=== PATIENT | male | born 1970 | race Caucasian/White ===

== ENCOUNTER 2018-02-07 09:18 | Observation (INO) | payer BC ==
[2018-02-07] MEDS ORDERED: SODIUM CHLORIDE 0.9% 1,000 ML IV STA ×2 (10:17)
[2018-02-07 10:46] LABS: Basophils # (A) 0.1 k/uL (0-0.2); Basophils % (A) 1 %; Eosinophils # (A) 0.4 k/uL (0-0.7); Eosinophils % (A) 5 %; HCT 49.2 % (39.0-53.0); HGB 17.4 gm/dL (13.0-17.5); Lymphocytes # (A) 1.8 k/uL (1.0-4.8); Lymphocytes % (A) 23 %; MCH 30.4 pg (25.0-35.0); MCHC 35.3 g/dL (31.0-37.0); MCV 86.3 fL (80.0-100.0); Mean Platelet Volume 6.7; Monocytes # (A) 0.6 k/uL (0-1.0); Monocytes % (A) 7 %; Neutrophils # (A) 4.9 k/uL (1.3-7.7); Neutrophils % (A) 62 %; Platelet Count 291 k/uL (150-450); RBC 5.71 m/uL (4.30-5.90); RDW 12.7 % (11.5-15.5)
[2018-02-07 10:53] LABS: INR 1.1 (<1.2); Partial Thromboplastin Time 24.2 sec (22.0-30.0); Prothrombin Time 10.8 sec (9.0-12.0)
[2018-02-07 10:57] LABS: ALT 200 U/L (21-72); AST 143 U/L (17-59); Albumin 4.6 g/dL (3.5-5.0); Alkaline Phosphatase 88 U/L (38-126); Anion Gap 11 mmol/L; Blood Urea Nitrogen 15 mg/dL (9-20); Carbon Dioxide 29 mmol/L (22-30); Chloride 97 mmol/L (98-107); Glucose 107 mg/dL (74-99); Lipase 66 U/L (23-300); Magnesium 1.9 mg/dL (1.6-2.3); Potassium 4.1 mmol/L (3.5-5.1); Sodium 137 mmol/L (137-145); Total Bilirubin 1.4 mg/dL (0.2-1.3); Total Protein 8.4 g/dL (6.3-8.2)
[2018-02-07 11:04] LABS: Creatine Kinase 115 U/L (55-170)
--- NOTE | 2018-02-07 11:12 | ED ---
Recheck HPI - General Chief Complaint: Recheck/Abnormal Lab/Rx Stated Complaint: HTN, headache Time Seen by Provider: 02/07/18 09:47 Source: patient, RN notes reviewed, old records reviewed Mode of arrival: ambulatory Limitations: no limitations - History of Present Illness Initial Comments: Patient's 47-year-old male presents emergency department today with the past 2 weeks having some chest discomfort, shortness of breath on exertion. Patient reports he's had history of high blood pressure. He recently had his episodes involving his daughter into college. He reports he went to his primary care provider and they increased his blood pressure medication of amlodipine to 5 mg. He reports that 2 days ago. No EKG was done at that time. Patient states that he had an episode where he was sitting at home and started to have diffuse sweats and this discomfort with chest and came in for reevaluation. Patient states that he's had a family history of heart disease. He is a nonsmoker. - Related Data Home Medications Medication Instructions Recorded Confirmed Atorvastatin [Lipitor] 20 mg PO DAILY 02/07/18 02/07/18 Lisinopril-Hctz 20-25 mg 1 tab PO DAILY 02/07/18 02/07/18 [Zestoretic 20-25] amLODIPine BESYLATE [Norvasc] 2.5 mg PO DAILY 02/07/18 02/07/18 amLODIPine [Norvasc] 5 mg PO DAILY 02/07/18 02/07/18 Allergies Allergy/AdvReac Type Severity Reaction Status Date / Time No Known Allergies Allergy Verified 02/07/18 09:58 Review of Systems ROS Statement: Those systems with pertinent positive or pertinent negative responses have been documented in the HPI. ROS Other: All systems not noted in ROS Statement are negative. Past Medical History Past Medical History: Hypertension History of Any Multi-Drug Resistant Organisms: None Reported Past Surgical History: Orthopedic Surgery Additional Past Surgical History / Comment(s): Rt shoulder surgery, knee surgery Past Psychological History: No Psychological Hx Reported Smoking Status: Never smoker Past Alcohol Use History: Daily Past Drug Use History: None Reported General Exam - General Exam Comments Initial Comments: This is a 47-year-old male. Alert and oriented. No significant distress. Limitations: no limitations General appearance: alert, in no apparent distress Head exam: Present: atraumatic, normocephalic, normal inspection Eye exam: Present: normal appearance, PERRL, EOMI. Absent: scleral icterus, conjunctival injection, periorbital swelling ENT exam: Present: normal exam, mucous membranes moist Neck exam: Present: normal inspection. Absent: tenderness, meningismus, lymphadenopathy Respiratory exam: Present: normal lung sounds bilaterally. Absent: respiratory distress, wheezes, rales, rhonchi, stridor Cardiovascular Exam: Present: regular rate, normal rhythm, normal heart sounds. Absent: systolic murmur, diastolic murmur, rubs, gallop, clicks Extremities exam: Present: normal inspection, full ROM, normal capillary refill. Absent: tenderness, pedal edema, joint swelling, calf tenderness Back exam: Present: normal inspection Neurological exam: Present: alert, oriented X3, CN II-XII intact Psychiatric exam: Present: normal affect, normal mood Skin exam: Present: warm, dry, intact, normal color. Absent: rash Course Vital Signs 02/07/18 02/07/18 09:20 11:42 Temperature 98.2 F Pulse Rate 87 78 Respiratory 18 16 Rate Blood Pressure 140/101 122/76 O2 Sat by Pulse 96 96 Oximetry Medical Decision Making - Medical Decision Making 47-year-old male presents emergency department today with 2 weeks of intermittent chest discomfort, diaphoresis and shortness of breath. Patient's EKG the symptoms reviewed and are medical for any significant changes except a few PVCs. Troponin is negative. The rest of his lab work was relatively unremarkable. Assessment elevated liver enzymes. Patient reports that this is chronic. He denies any right upper quadrant pain or tenderness. Patient states the pain seems to mainly in the left side of his chest. The same Patient has a family history of heart disease. I discussed that he has risk factors including high blood pressure and symptoms are concerning for unstable angina. This will admit the Patient under Dr. Griffin with consult to cardiology. Patient given aspirin. - Lab Data Result diagrams: 02/07/18 10:33 02/07/18 10:33 Lab Results 02/07/18 02/07/18 02/07/18 Range/Units 10:33 10:33 10:33 WBC 8.0 (3.8-10.6) k/uL RBC 5.71 (4.30-5.90) m/uL Hgb 17.4 (13.0-17.5) gm/dL Hct 49.2 (39.0-53.0) % MCV 86.3 (80.0-100.0) fL MCH 30.4 (25.0-35.0) pg MCHC 35.3 (31.0-37.0) g/dL RDW 12.7 (11.5-15.5) % Plt Count 291 (150-450) k/uL Neutrophils % 62 % Lymphocytes % 23 % Monocytes % 7 % Eosinophils % 5 % Basophils % 1 % Neutrophils # 4.9 (1.3-7.7) k/uL Lymphocytes # 1.8 (1.0-4.8) k/uL Monocytes # 0.6 (0-1.0) k/uL Eosinophils # 0.4 (0-0.7) k/uL Basophils # 0.1 (0-0.2) k/uL PT (9.0-12.0) sec INR (<1.2) APTT (22.0-30.0) sec Sodium 137 (137-145) mmol/L Potassium 4.1 (3.5-5.1) mmol/L Chloride 97 L (98-107) mmol/L Carbon Dioxide 29 (22-30) mmol/L Anion Gap 11 mmol/L BUN 15 (9-20) mg/dL Creatinine 0.91 (0.66-1.25) mg/dL Est GFR (CKD-EPI)AfAm >90 (>60 ml/min/1.73 sqM) Est GFR (CKD-EPI)NonAf >90 (>60 ml/min/1.73 sqM) Glucose 107 H (74-99) mg/dL Calcium 10.0 (8.4-10.2) mg/dL Magnesium 1.9 (1.6-2.3) mg/dL Total Bilirubin 1.4 H (0.2-1.3) mg/dL AST 143 H (17-59) U/L ALT 200 H (21-72) U/L Alkaline Phosphatase 88 (38-126) U/L Total Creatine Kinase 115 (55-170) U/L CK-MB (CK-2) 1.2 (0.0-2.4) ng/mL CK-MB (CK-2) Rel Index 1.0 Troponin I <0.012 (0.000-0.034) ng/mL NT-Pro-B Natriuret Pep pg/mL Total Protein 8.4 H (6.3-8.2) g/dL Albumin 4.6 (3.5-5.0) g/dL Lipase 66 (23-300) U/L 02/07/18 02/07/18 Range/Units 10:33 10:33 WBC (3.8-10.6) k/uL RBC (4.30-5.90) m/uL Hgb (13.0-17.5) gm/dL Hct (39.0-53.0) % MCV (80.0-100.0) fL MCH (25.0-35.0) pg MCHC (31.0-37.0) g/dL RDW (11.5-15.5) % Plt Count (150-450) k/uL Neutrophils % % Lymphocytes % % Monocytes % % Eosinophils % % Basophils % % Neutrophils # (1.3-7.7) k/uL Lymphocytes # (1.0-4.8) k/uL Monocytes # (0-1.0) k/uL Eosinophils # (0-0.7) k/uL Basophils # (0-0.2) k/uL PT 10.8 (9.0-12.0) sec INR 1.1 (<1.2) APTT 24.2 (22.0-30.0) sec Sodium (137-145) mmol/L Potassium (3.5-5.1) mmol/L Chloride (98-107) mmol/L Carbon Dioxide (22-30) mmol/L Anion Gap mmol/L BUN (9-20) mg/dL Creatinine (0.66-1.25) mg/dL Est GFR (CKD-EPI)AfAm (>60 ml/min/1.73 sqM) Est GFR (CKD-EPI)NonAf (>60 ml/min/1.73 sqM) Glucose (74-99) mg/dL Calcium (8.4-10.2) mg/dL Magnesium (1.6-2.3) mg/dL Total Bilirubin (0.2-1.3) mg/dL AST (17-59) U/L ALT (21-72) U/L Alkaline Phosphatase (38-126) U/L Total Creatine Kinase (55-170) U/L CK-MB (CK-2) (0.0-2.4) ng/mL CK-MB (CK-2) Rel Index Troponin I (0.000-0.034) ng/mL NT-Pro-B Natriuret Pep 11 pg/mL Total Protein (6.3-8.2) g/dL Albumin (3.5-5.0) g/dL Lipase (23-300) U/L 02/07/18 11:12 EKG performed at 1012 so sinus rhythm with occasional PVCs. Otherwise normal EKG noted. - Radiology Data Radiology results: report reviewed Chest x-rays negative for any acute process. Disposition Clinical Impression: Unstable angina Disposition: ADMITTED IP TO THIS HOSP Condition: Good Is patient prescribed a controlled substance at d/c from ED?: No Referrals: Mic Antonio MD [Primary Care Provider] - 1-2 days Time of Disposition: 12:46 - Out of Hospital Transfer - Req. Specs Out of Hospital Transfer - Requested Specifics: Other Emergency Center
[2018-02-07 11:17] LABS: Creatine Kinase MB 1.2 ng/mL (0.0-2.4); Troponin I <0.012 ng/mL (0.000-0.034)
--- NOTE | 2018-02-07 11:21 | XR ---
EXAMINATION TYPE: XR chest 2V DATE OF EXAM: 02/07/2018 COMPARISON: NONE HISTORY: Chest pain TECHNIQUE: Frontal and lateral views of the chest are obtained. FINDINGS: There is no focal air space opacity, pleural effusion, or pneumothorax seen. The cardiac silhouette size is within normal limits. The osseous structures are intact. Postop change noted to the right shoulder. IMPRESSION: No acute cardiopulmonary process.
[2018-02-07] MEDS ORDERED: NITROGLYCERIN SL TABS 0.4 MG TAB SUBLINGUAL PRN (11:58)
[2018-02-07] MEDS ORDERED: ASPIRIN 81 MG PO STA (11:58)
[2018-02-07] MEDS ORDERED: IBUPROFEN 400 MG TAB PO PRN (12:47)
[2018-02-07] MEDS ORDERED: MORPHINE SULFATE 4 MG/ML SYRINGE IV PRN (12:47)
[2018-02-07] MEDS ORDERED: NALOXONE 0.4 MG/ML 1 ML VIAL IV PRN (12:47)
[2018-02-07] MEDS ORDERED: ACETAMINOPHEN TAB 325 MG TAB PO PRN (12:47)
[2018-02-07] MEDS ORDERED: KETOROLAC 30 MG/ML 1 ML VIAL IVP PRN (12:47)
--- NOTE | 2018-02-07 15:52 | P.CRDCN ---
History of Present Illness History of present illness: Mr. Cr is a pleasant 47-year-old male past medical history significant for hypertension, dyslipidemia, osteoarthritis and daily alcohol intake. He denies history of coronary artery disease and has never seen a admitting representative for any reason. We have been asked to see him in consultation for chest pain. He states the previous week or so he has been struggling with not feeling well in general. He describes symptoms of headache, palpitations, diaphoresis and dizziness. He has no specific aggravating factor for these symptoms. He has followed up with his primary care physician and amlodipine was increased from 5 to 7.5 mg daily. He woke up on Sunday morning at 0300 feeling generally not well with very vague symptoms of dizziness and fatigue. He took his increased dose of Norvasc 7.5 mg and within about 30 minutes or so he said that he started to feel good. He went on throughout the day with no significant symptoms of chest discomfort, shortness of breath, palpitations or dizziness. Same situation happened again the next day woke up around 3:00 in the morning not feeling well, took his blood pressure medications but subsequently started feeling better. At the time of my exam he is seen sitting up in bed in no acute distress, denies chest pain, shortness of breath, dizziness or palpitations. EKG reveals sinus mechanism with inferior Q-waves noted. No acute ST or T-wave changes. Chest xray negative for an acute cardiopulmonary process. Laboratory data reviewed, hemoglobin 17.4, platelets 291, sodium 137, potassium 4.1, magnesium 1.9, creatinine 0.91, total bilirubin 1.4, AST 143, ALT 200, proBNP 11 and cardiac enzymes negative 1. Current cardiac medications include lisinopril/HCTZ 20/25 mg daily, amlodipine 7.5 mg daily and atorvastatin 20 mg daily. Review of Systems At the time of my exam: CONSTITUTIONAL: Denies fever. Denies chills. EYES: Denies blurred vision. Denies vision changes. Denies eye pain. EARS, NOSE, MOUTH & THROAT: Denies headache. Denies sore throat. Denies ear pain. CARDIOVASCULAR: Denies chest pain. Denies shortness of breath. Denies orthopnea. Denies PND. Denies palpitations. RESPIRATORY: Denies cough. GASTROINTESTINAL: Denies abdominal pain. Denies diarrhea. Denies constipation. Denies nausea. Denies vomiting. MUSCULOSKELETAL: Denies myalgias. INTEGUMENTARY: Denies pruitis. Denies rash. NEUROLOGIC: Denies numbness. Denies tingling. Denies weakness. PSYCHIATRIC: Denies anxiety. Denies depression. ENDOCRINE: Denies fatigue. Denies weight change. Denies polydipsia. Denies polyurina. GENITOURINARY: Denies burning, hematuria or urgency with micturation. HEMATOLOGIC: Denies history of anemia. Denies bleeding. Past Medical History Past Medical History: Hypertension, Osteoarthritis (OA) Additional Past Medical History / Comment(s): Arthritis L knee, fatty liver History of Any Multi-Drug Resistant Organisms: None Reported Past Surgical History: Orthopedic Surgery Additional Past Surgical History / Comment(s): Rt shoulder rotator cuff surgery , L knee arthroscopic surgery, wisdom teeth extractions. Smoking Status: Never smoker - Past Family History Father Family Medical History: Vascular Disorder Additional Family Medical History / Comment(s): Father as a complication of caratid artery surgery that hemorrhaged. Mother Family Medical History: CVA/TIA Additional Family Medical History / Comment(s): Mother has had TIAs and CVAs. Medications and Allergies Home Medications Medication Instructions Recorded Confirmed Type Atorvastatin [Lipitor] 20 mg PO DAILY 02/07/18 02/07/18 History Lisinopril-Hctz 20-25 mg 1 tab PO DAILY 02/07/18 02/07/18 History [Zestoretic 20-25] amLODIPine BESYLATE [Norvasc] 2.5 mg PO DAILY 02/07/18 02/07/18 History amLODIPine [Norvasc] 5 mg PO DAILY 02/07/18 02/07/18 History Allergies Allergy/AdvReac Type Severity Reaction Status Date / Time No Known Allergies Allergy Verified 02/07/18 09:58 Physical Exam Vitals: Vital Signs Temp Pulse Resp BP Pulse Ox 02/07/18 14:44 85 20 168/75 93 L 02/07/18 13:42 81 18 131/85 96 02/07/18 11:42 78 16 122/76 96 02/07/18 09:20 98.2 F 87 18 140/101 96 Intake and Output 02/07/18 02/07/18 02/07/18 06:59 14:59 22:59 Other: Weight 113.398 kg Blood pressure 168/75 heart rate 85 afebrile maintaining oxygen saturation on room air GENERAL: This is a 47-year-old patient male in no apparent distress at the time of my examination. HEENT: Head is atraumatic, normocephalic. Pupils are equal, round. Sclerae anicteric. Conjunctivae are clear. Mucous membranes of the mouth are moist. Neck is supple. There is no jugular venous distention. No carotid bruit is heard. LUNGS: Clear to auscultation no wheezes, rales or rhonchi. No chest wall tenderness is noted on palpation or with deep breathing. HEART: Regular rate and rhythm without murmurs, rubs or gallops. S1 and S2 heard. ABDOMEN: Soft, nontender. Bowel sounds are heard. No organomegaly noted. EXTREMITIES: No evidence of peripheral edema and no calf tenderness noted. VASCULAR: Radial and dorsalis pedis pulses palpated, no evidence of clubbing. NEUROLOGIC: Patient is awake, alert and oriented x3. Results 02/07/18 10:33 02/07/18 10:33 Cardiac Enzymes 02/07/18 02/07/18 Range/Units 10:33 10:33 AST 143 H (17-59) U/L CK-MB (CK-2) 1.2 (0.0-2.4) ng/mL Troponin I <0.012 (0.000-0.034) ng/mL Coagulation 02/07/18 Range/Units 10:33 PT 10.8 (9.0-12.0) sec APTT 24.2 (22.0-30.0) sec CBC 02/07/18 Range/Units 10:33 WBC 8.0 (3.8-10.6) k/uL RBC 5.71 (4.30-5.90) m/uL Hgb 17.4 (13.0-17.5) gm/dL Hct 49.2 (39.0-53.0) % Plt Count 291 (150-450) k/uL Comprehensive Metabolic Panel 02/07/18 Range/Units 10:33 Sodium 137 (137-145) mmol/L Potassium 4.1 (3.5-5.1) mmol/L Chloride 97 L (98-107) mmol/L Carbon Dioxide 29 (22-30) mmol/L BUN 15 (9-20) mg/dL Creatinine 0.91 (0.66-1.25) mg/dL Glucose 107 H (74-99) mg/dL Calcium 10.0 (8.4-10.2) mg/dL AST 143 H (17-59) U/L ALT 200 H (21-72) U/L Alkaline Phosphatase 88 (38-126) U/L Total Protein 8.4 H (6.3-8.2) g/dL Albumin 4.6 (3.5-5.0) g/dL Current Medications Generic Name Dose Route Start Last Admin Trade Name Freq PRN Reason Stop Dose Admin Amlodipine Besylate 5 mg 02/08/18 09:00 Norvasc PO DAILY KRISTINA Amlodipine Besylate 2.5 mg 02/08/18 09:00 Norvasc PO DAILY KRISTINA Atorvastatin Calcium 20 mg 02/08/18 09:00 Lipitor PO DAILY KRISTINA Lisinopril/HCTZ 1 each 02/08/18 09:00 Zestoretic 20-25 PO DAILY KRISTINA Sodium Chloride 1,000 mls @ 100 mls/hr 02/07/18 10:17 02/07/18 10:35 Saline 0.9% IV 02/07/18 20:16 100 mls/hr .Q10H STA Administration Sodium Chloride 1,000 mls @ 120 mls/hr 02/07/18 13:00 Saline 0.9% IV .Q8H20M KRISTINA Morphine Sulfate 4 mg 02/07/18 12:47 Morphine Sulfate (Inj) IV Q4HR PRN Severe Pain Naloxone HCl 0.2 mg 02/07/18 12:47 Narcan IV Q2M PRN Opioid Reversal Nitroglycerin 0.4 mg 02/07/18 11:58 Nitrostat SUBLINGUAL Q5M PRN Chest Pain Pantoprazole Sodium 40 mg 02/07/18 15:15 Protonix IVP DAILY KRISTINA Intake and Output 02/07/18 02/07/18 02/07/18 06:59 14:59 22:59 Other: Weight 113.398 kg Patient Weight 02/08/18 06:59 Weight 113.398 kg 02/07/18 10:33 02/07/18 10:33 Assessment and Plan Assessment: ASSESSMENT Chest pain, atypical with palpitations. Headache Hypertension, uncontrolled Dyslipidemia Elevated liver enzymes, possibly related to daily alcohol intake and statin therapy. PLAN Continue to obtain serial cardiac enzymes to rule out an acute coronary event. Obtain 2D echocardiogram and doppler study to assess cardiac structure and function. Ongoing telemetry monitoring for an acute arrhythmia. Increase amlodipine to 10 mg daily. Hold atorvastatin pending lipid panel. Check TSH and free T4. Further recommendations to follow based on clinical course. Thank you kindly for this consultation. Nurse Practitioner note has been reviewed, I agree with a documented findings and plan of care. Patient was seen and examined.
--- NOTE | 2018-02-07 16:07 | P.HPIM ---
History of Present Illness 47-year-old male past medical history significant for hypertension, dyslipidemia, osteoarthritis and daily alcohol intake. He denies history of coronary artery disease and has never seen a contractor buyer for any reason. We have been asked to see him in consultation for chest pain. He states the previous week or so he has been struggling with not feeling well in general. He describes symptoms of headache, palpitations, diaphoresis and dizziness. He has no specific aggravating factor for these symptoms. He has followed up with his primary care physician and amlodipine was increased from 5 to 7.5 mg daily. He woke up on Sunday morning at 0300 feeling generally not well with very vague symptoms of dizziness and fatigue. He took his increased dose of Norvasc 7.5 mg and within about 30 minutes or so he said that he started to feel good. He went on throughout the day with no significant symptoms of chest discomfort, shortness of breath, palpitations or dizziness. Same situation happened again the next day woke up around 3:00 in the morning not feeling well, took his blood pressure medications but subsequently started feeling better. At the time of my exam he is seen sitting up in bed in no acute distress, denies chest pain , shortness of breath, dizziness or palpitations. Patient does have elevated liver enzymes does drink alcohol on a daily basis for 3-4 beers never had any withdrawals do not have any withdrawals as per the patient. Because of elevated liver enzymes him holding upon statin. Review of Systems REVIEW OF SYSTEMS: CONSTITUTIONAL: No fever, no malaise, no fatigue. HEENT: No recent visual problems or hearing problems. Denied any sore throat. CARDIOVASCULAR: No chest pain, orthopnea, PND, no palpitations, no syncope. PULMONARY: No shortness of breath, no cough, no hemoptysis. GASTROINTESTINAL: No diarrhea, no nausea, no vomiting, no abdominal pain. Normoactive bowel sounds. NEUROLOGICAL: No headaches, no weakness, no numbness. HEMATOLOGICAL: Denies any bleeding or petechiae. GENITOURINARY: Denies any burning micturition, frequency, or urgency. MUSCULOSKELETAL/RHEUMATOLOGICAL: Denies any joint pain, swelling, or any muscle pain. ENDOCRINE: Denies any polyuria or polydipsia. The rest of the 14-point review of systems is negative. Past Medical History Past Medical History: Hypertension, Osteoarthritis (OA) Additional Past Medical History / Comment(s): Arthritis L knee, fatty liver History of Any Multi-Drug Resistant Organisms: None Reported Past Surgical History: Orthopedic Surgery Additional Past Surgical History / Comment(s): Rt shoulder rotator cuff surgery , L knee arthroscopic surgery, wisdom teeth extractions. Smoking Status: Never smoker - Past Family History Father Family Medical History: Vascular Disorder Additional Family Medical History / Comment(s): Father as a complication of caratid artery surgery that hemorrhaged. Mother Family Medical History: CVA/TIA Additional Family Medical History / Comment(s): Mother has had TIAs and CVAs. Medications and Allergies Home Medications Medication Instructions Recorded Confirmed Type Atorvastatin [Lipitor] 20 mg PO DAILY 02/07/18 02/07/18 History Lisinopril-Hctz 20-25 mg 1 tab PO DAILY 02/07/18 02/07/18 History [Zestoretic 20-25] amLODIPine BESYLATE [Norvasc] 2.5 mg PO DAILY 02/07/18 02/07/18 History amLODIPine [Norvasc] 5 mg PO DAILY 02/07/18 02/07/18 History Allergies Allergy/AdvReac Type Severity Reaction Status Date / Time No Known Allergies Allergy Verified 02/07/18 09:58 Physical Exam Vitals: Vital Signs Temp Pulse Pulse Resp BP BP Pulse Ox 02/07/18 15:20 98.2 F 76 18 145/80 95 02/07/18 14:44 85 20 168/75 93 L 02/07/18 13:42 81 18 131/85 96 02/07/18 11:42 78 16 122/76 96 02/07/18 09:20 98.2 F 87 18 140/101 96 Intake and Output 02/07/18 02/07/18 02/07/18 06:59 14:59 22:59 Other: Weight 113.398 kg 115.2 kg Results CBC & Chem 7: 02/07/18 10:33 02/07/18 10:33 Labs: Abnormal Lab Results - Last 24 Hours (Table) 02/07/18 Range/Units 10:33 Chloride 97 L (98-107) mmol/L Glucose 107 H (74-99) mg/dL Total Bilirubin 1.4 H (0.2-1.3) mg/dL AST 143 H (17-59) U/L ALT 200 H (21-72) U/L Total Protein 8.4 H (6.3-8.2) g/dL Thrombosis Risk Factor Assmnt - Choose All That Apply Any of the Below Risk Factors Present?: Yes Each Factor Represents 1 point: Age 41-60 years, Obesity (BMI >25) Other Risk Factors: No Other congenital or acquired thrombophilia - If yes, enter type in comment: No Thrombosis Risk Factor Assessment Total Risk Factor Score: 2 Thrombosis Risk Factor Assessment Level: Low Risk Assessment and Plan Plan: Atypical chest pain atypical in nature we will rule out acute coronary syndromes , cardiology will evaluate the patient probably due to stress test tomorrow patient has some PVCs on the EKG -Palpitations: Probably secondary to PVD PVCs will monitor overnight. -Hyperlipidemia -Hypertension uncontrolled, amlodipine dose was increased by cardiology patient is also on lisinopril had good thiazide which will be continued -Elevated liver enzymes secondary to alcoholic use, we'll temporally hold on statin we'll repeat CMP tomorrow lipase panel tomorrow morning. -Alcohol abuse: Counseling was provided -Obesity: Dietary counseling was provided
[2018-02-07] MEDS: SODIUM CHLORIDE 0.9% 1,000 ML IV SCH (16:40)
[2018-02-07 17:12] LABS: Creatine Kinase 102 U/L (55-170)
[2018-02-07 17:24] LABS: Troponin I <0.012 ng/mL (0.000-0.034)
[2018-02-07] MEDS: PANTOPRAZOLE 40 MG/10 ML VIAL IVP SCH (18:29)
[2018-02-07] MEDS ORDERED: MORPHINE ORAL SOLN 10 MG/5 ML CUP PO PRN (19:03)
[2018-02-07 23:37] LABS: Creatine Kinase 100 U/L (55-170)
[2018-02-07 23:49] LABS: Creatine Kinase MB 0.9 ng/mL (0.0-2.4); Troponin I <0.012 ng/mL (0.000-0.034)
[2018-02-08] MEDS: SODIUM CHLORIDE 0.9% 1,000 ML IV SCH ×2 (05:55→05:56)
[2018-02-08 08:06] VITALS: RESP 16
[2018-02-08] MEDS ORDERED: SODIUM CHLORIDE 0.9% 500 ML IV SCH (08:15)
[2018-02-08] MEDS ORDERED: amLODIPine 10 MG TAB PO SCH (09:00)
[2018-02-08] MEDS ORDERED: amLODIPine 5 MG TAB PO SCH (09:00)
[2018-02-08] MEDS ORDERED: LISINOPRIL-HCTZ 20-25 MG 1 EACH TAB PO SCH (09:00)
[2018-02-08] MEDS ORDERED: ATORVASTATIN 20 MG TAB PO SCH (09:00)
[2018-02-08] MEDS ORDERED: amLODIPine 2.5 MG TAB PO SCH (09:00)
[2018-02-08 09:51] LABS: ALT 182 U/L (21-72); AST 140 U/L (17-59); Albumin 3.8 g/dL (3.5-5.0); Alkaline Phosphatase 75 U/L (38-126); Anion Gap 6 mmol/L; Blood Urea Nitrogen 15 mg/dL (9-20); Calcium 9.1 mg/dL (8.4-10.2); Carbon Dioxide 29 mmol/L (22-30); Chloride 104 mmol/L (98-107); Cholesterol 174 mg/dL (<200); Glucose 114 mg/dL (74-99); HDL Cholesterol 41 mg/dL (40-60); LDL Cholesterol,Calculated 116 mg/dL (0-99); Potassium 4.6 mmol/L (3.5-5.1); Sodium 139 mmol/L (137-145); Total Bilirubin 0.9 mg/dL (0.2-1.3); Total Protein 6.9 g/dL (6.3-8.2); Triglycerides 83 mg/dL (<150)
--- NOTE | 2018-02-08 10:12 | P.PN ---
Subjective Mr. Cr is seen and examined in no acute distress. He denies any further symptoms of chest pain, shortness of breath, dizziness or palpitations. He states he woke up around 0300 and felt acutely diaphoretic with no other associated symptoms. Telemetry tracings have been unremarkable, cardiac enzymes negative x3, repeat liver enzymes only mildly improved. LDL 116, HDL 41, TSH 1.55. Blood pressure 117/80 heart rate 66 afebrile and maintaining oxygen saturation on room air. Objective - Vital Signs Vital signs: Vital Signs Temp 98.1 F 02/08/18 08:00 Pulse 66 02/08/18 08:00 Resp 16 02/08/18 08:00 BP 117/80 02/08/18 08:00 Pulse Ox 96 02/08/18 08:00 Intake & Output 02/07/18 02/08/18 02/08/18 18:59 06:59 18:59 Intake Total 840 720 Balance 840 720 Weight 115.2 kg 114.759 kg Intake: IV 720 Sodium Chloride 0.9% 1, 720 000 ml @ 120 mls/hr IV . Q8H20M [facility] Rx#:[id number] Oral 840 Other: Voiding Method Toilet Toilet Toilet # Voids 3 2 - Exam GENERAL: Well-appearing, well-nourished and in no acute distress. NECK: Supple without JVD or thyromegaly. LUNGS: Breath sounds clear to auscultation bilaterally. Respiration equal and unlabored. No wheezes, rales or rhonchi. HEART: Regular rate and rhythm without murmurs, rubs or gallops. S1 and S2 heard. EXTREMITIES: Normal range of motion, no edema. No clubbing or cyanosis. Peripheral pulses intact. - Labs CBC & Chem 7: 02/07/18 10:33 02/08/18 09:02 Labs: Abnormal Lab Results - Last 24 Hours (Table) 02/07/18 02/08/18 Range/Units 10:33 09:02 Chloride 97 L (98-107) mmol/L Glucose 107 H 114 H (74-99) mg/dL Total Bilirubin 1.4 H (0.2-1.3) mg/dL AST 143 H 140 H (17-59) U/L ALT 200 H 182 H (21-72) U/L Total Protein 8.4 H (6.3-8.2) g/dL LDL Cholesterol, Calc 116 H (0-99) mg/dL Assessment and Plan Assessment: ASSESSMENT Chest pain, atypical with palpitations. Headache Hypertension, uncontrolled Dyslipidemia Elevated liver enzymes, possibly related to daily alcohol intake and statin therapy. Daily alcohol use PLAN Perform exercise stress echocardiogram to assess for stress induced cardiac ischemic changes. Alcohol cessation discussed and patient counseled on decreasing his daily intake. at the bedside as well. If stress test is normal he is stable for discharge. Follow up with Dr. Grijalva in 3 weeks. Nurse Practitioner note has been reviewed, I agree with a documented findings and plan of care. Patient was seen and examined.
--- NOTE | 2018-02-08 10:35 | ECHOF ---
Referral Reason:cp MEASUREMENTS -------- HEIGHT: 188.0 cm WEIGHT: 114.8 kg BP: 145/80 RVIDd: 3.2 cm (< 3.3) IVSd: 1.2 cm (0.6 - 1.1) LVIDd: 4.4 cm (3.9 - 5.3) LVPWd: 1.2 cm (0.6 - 1.1) IVSs: 1.5 cm LVIDs: 2.7 cm LVPWs: 1.5 cm LAESV Index (A-L): 18.13 ml/m Ao Diam: 3.2 cm (2.0 - 3.7) AV Cusp: 1.7 cm (1.5 - 2.6) LA Diam: 3.2 cm (2.7 - 3.8) EPSS: 0.6 cm MV E Elías: 0.74 m/s MV DecT: 205 ms MV A Elías: 0.60 m/s MV E/A Ratio: 1.24 RAP: 5.00 mmHg RVSP: 11.00 mmHg MV EF SLOPE: 121.20 mm/s (70 - 150) MV EXCURSION: 1.82 cm (> 18.000) FINDINGS -------- Sinus rhythm. This was a technically adequate study. The left ventricular size is normal. There is mild concentric left ventricular hypertrophy. Overa ll left ventricular systolic function is normal with, an EF between 55 - 60 %. The right ventricle is mildly enlarged. Normal LA size by volume 22+/-6 ml/m2. The right atrium is normal in size. The aortic valve is trileaflet, and appears structurally normal. No aortic stenosis or regurgitation. The mitral valve is normal. Mild mitral regurgitation is present. Trace tricuspid regurgitation present. Right ventricular systolic pressure is normal at < 35 mmHg. The right ventricular systolic pressure, as measured by Doppler, is 11.00mmHg. The pulmonic valve was not well visualized. Trace/mild (physiologic) pulmonic regurgitation. The aortic root size is normal. IVC Not well visulized. There is no pericardial effusion. CONCLUSIONS -------- 1. Sinus rhythm. 2. This was a technically adequate study. 3. The left ventricular size is normal. 4. There is mild concentric left ventricular hypertrophy. 5. Overall left ventricular systolic function is normal with, an EF between 55 - 60 %. 6. The right ventricle is mildly enlarged. 7. Normal LA size by volume 22+/-6 ml/m2. 8. The aortic valve is trileaflet, and appears structurally normal. No aortic stenosis or regurgitati on. 9. The mitral valve is normal. 10. Mild mitral regurgitation is present. 11. Trace tricuspid regurgitation present. 12. Right ventricular systolic pressure is normal at < 35 mmHg. 13. The pulmonic valve was not well visualized. 14. Trace/mild (physiologic) pulmonic regurgitation. 15. The aortic root size is normal. 16. IVC Not well visulized. 17. There is no pericardial effusion. [employer]: Mannie Sears RDCS
[2018-02-08] MEDS: PANTOPRAZOLE 40 MG/10 ML VIAL IVP SCH (11:17)
[2018-02-08 12:05] VITALS: BP 128/86; PULSE 77; TEMP 98.2
--- NOTE | 2018-02-08 12:42 | US ---
EXAMINATION TYPE: US gallbladder DATE OF EXAM: 02/08/2018 COMPARISON: NONE CLINICAL HISTORY: elevated liver enzymes. htn, patient states his heart rate was accelerating during routine movements at home, no pain, no nausea EXAM MEASUREMENTS: Liver Length: 17.8 cm Gallbladder Wall: 0.2 cm CBD: 0.5 cm Right Kidney: 12.3 x 6.0 x 6.3 cm bowel gas limits exam Pancreas: limited views appear wnl Liver: difficult to penetrate Gallbladder: neck fold seen with 0.6cm polyp versus non shadowing stones, non mobile Evidence for sonographic Choe's sign: no CBD: wnl Right Kidney: wnl No evident ascites. IMPRESSION: Findings may represent hepatic steatosis, exam is somewhat limited. Cholelithiasis versus gallbladder polyp.
--- NOTE | 2018-02-08 15:55 | P.DS ---
Providers Date of admission: 02/07/18 12:43 Attending physician: Catalino Yao Consults: 02/07/18 12:47 Consult Physician Stat Consulting Provider: Robel Grijalva Consult Reason/Comments: Unstable angina Do you want consulting provider notified?: Yes Primary care physician: [place] [facility] Course: Patient came in with multiple nonspecific symptoms of occasional diaphoresis and palpitations, mild chest pain patient underwent stress test which was negative palpitations are probably secondary to PVCs. Patient may end up needing Holter monitor if he can use to have the symptoms as an outpatient patient will follow with cardiology as an outpatient. Patient incidentally is found to have polyp or gallstone, patient will need to follow up with surgery as an outpatient. Patient doesn't have any chest pain at this time. Patient was advised to quit alcohol. Patient does have elevated liver enzymes secondary to alcohol and atorvastatin patient LDL is 120s, dietary counseling was provided and atorvastatin will be temporarily discontinued and repeat LDL in about a month and if LDL is still elevated can try statins again with monitoring of liver function.His AST and ALT ratio is not typical for alcoholic hepatitis PHYSICAL EXAMINATION: GENERAL: The patient is alert and oriented x3, not in any acute distress. Well developed, well nourished. HEENT: Pupils are round and equally reacting to light. EOMI. No scleral icterus. No conjunctival pallor. Normocephalic, atraumatic. No pharyngeal erythema. No thyromegaly. CARDIOVASCULAR: S1 and S2 present. No murmurs, rubs, or gallops. PULMONARY: Chest is clear to auscultation, no wheezing or crackles. ABDOMEN: Soft, nontender, nondistended, normoactive bowel sounds. No palpable organomegaly. MUSCULOSKELETAL: No joint swelling or deformity. EXTREMITIES: No cyanosis, clubbing, or pedal edema. NEUROLOGICAL: Gross neurological examination did not reveal any focal deficits. SKIN: No rashes. For his other chronic medical problems please refer to my dictation of H&P Patient Condition at Discharge: Good Plan - Discharge Summary Discharge Rx Participant: No New Discharge Prescriptions: Discontinued Atorvastatin [Lipitor] 20 mg PO DAILY No Action amLODIPine [Norvasc] 5 mg PO DAILY amLODIPine BESYLATE [Norvasc] 2.5 mg PO DAILY Lisinopril-Hctz 20-25 mg [Zestoretic 20-25] 1 tab PO DAILY Discharge Medication List Lisinopril-Hctz 20-25 mg [Zestoretic 20-25] 1 tab PO DAILY 02/07/18 [History] amLODIPine BESYLATE [Norvasc] 2.5 mg PO DAILY 02/07/18 [History] amLODIPine [Norvasc] 5 mg PO DAILY 02/07/18 [History] Follow up Appointment(s)/Referral(s): Robel Grijalva MD [STAFF PHYSICIAN] - 02/27/18 8:30 am Mic Antonio MD [Primary Care Provider] - 3 Days Zoraida Vázquez MD [STAFF PHYSICIAN] - 02/19/18 3:20 pm Discharge Disposition: HOME SELF-CARE
--- NOTE | 2018-02-08 16:20 | ECHOS ---
STRESS ECHOCARDIOGRAM DATE OF SERVICE: 02/08/2018 INDICATIONS: Chest pain. MEDICATIONS: Lipitor, lisinopril, Norvasc. BASELINE HEART RATE: 78 BASELINE BLOOD PRESSURE: 165/102 MAXIMUM HEART RATE: 167 MAXIMUM BLOOD PRESSURE: 209/76 85% MPHR: 147 100% MPHR: 173 METS: 8.5 MAXIMUM STAGE REACHED: III TOTAL EXERCISE TIME: 7 minutes CLINICAL INFORMATION: Baseline rhythm is sinus mechanism, normal axis and intervals, normal electrocardiogram. Baseline blood pressure 165/102 mmHg. Patient exercised on Jose protocol for 7 minutes reaching peak rate of 167 beats per minute which is equal to 96% maximum predicted heart rate. Peak blood pressure 209/76 mmHg. Test was terminated secondary to fatigue. There was no chest pain. Electrocardiograph monitoring revealed no evidence of diagnostic ischemic ST deviation. Baseline echocardiogram revealed normal wall thickening and motion. At peak exercise, there was normal wall motion augmentation with no hypokinesis or dyskinesis. CONCLUSION: 1. Average exercise tolerance with normal electrocardiograph response to exercise. 2. Normal stress echocardiogram with no evidence of stress induced ischemia. MMODL / IJN: [id number] /
[2018-02-09] MEDS ORDERED: PANTOPRAZOLE 40 MG TABLET PO SCH (07:30)
== END 2018-02-08 14:49 | disposition home or self-care (01) ==
LOC: EC 09:18 → 3OBS 12:43
PROVIDERS: ADMIT Internal Medicine; ATTEND Internal Medicine
DX: R07.89 Other chest pain (principal); R61 Generalized hyperhidrosis; R06.02 Shortness of breath; R00.2 Palpitations; I49.3 Ventricular premature depolarization; I10 Essential (primary) hypertension; F10.10 Alcohol abuse, uncomplicated; R74.8 Abnormal levels of other serum enzymes; T46.6X5A Adverse effect of antihyperlipidemic and antiarteriosclerotic drugs, initial encounter; E78.5 Hyperlipidemia, unspecified; M19.90 Unspecified osteoarthritis, unspecified site; R42 Dizziness and giddiness; R53.83 Other fatigue; R93.2 Abnormal findings on diagnostic imaging of liver and biliary tract; M17.12 Unilateral primary osteoarthritis, left knee; K76.0 Fatty (change of) liver, not elsewhere classified; E66.9 Obesity, unspecified; Z68.32 Body mass index [BMI] 32.0-32.9, adult; Z79.899 Other long term (current) drug therapy; Z82.3 Family history of stroke; Z82.49 Family history of ischemic heart disease and other diseases of the circulatory system
CPT/HCPCS: 99285 ×2; 96361 ×8; 96374; 96376; 36415; 93005; 93306; 93351; 83880; 80061; 80053 ×2; 84443; 82550; 82553; 83690; 83735; 84484; 85025; 85610; 85730; 71046; 76705; G0378 ×2; C9113 ×2